=== PATIENT | female | born 1960 | race Caucasian/White ===

== ENCOUNTER 2016-07-07 13:25 | Emergency (ER) | payer BC, MEDICAID ==
[2016-07-07 14:00] VITALS: BP 141/77
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
== END 2016-07-07 15:10 | disposition home or self-care (01) ==
LOC: JP.ED 13:25
DX: R10.9 Unspecified abdominal pain (principal); G89.18 Other acute postprocedural pain; I10 Essential (primary) hypertension; I50.9 Heart failure, unspecified; K21.9 Gastro-esophageal reflux disease without esophagitis; F41.0 Panic disorder [episodic paroxysmal anxiety]; F32.9 Major depressive disorder, single episode, unspecified; Z90.49 Acquired absence of other specified parts of digestive tract; Z98.84 Bariatric surgery status; Z90.710 Acquired absence of both cervix and uterus; Z90.721 Acquired absence of ovaries, unilateral; Z98.890 Other specified postprocedural states; Z79.899 Other long term (current) drug therapy; Z88.2 Allergy status to sulfonamides; Z88.1 Allergy status to other antibiotic agents; Z88.8 Allergy status to other drugs, medicaments and biological substances
CPT/HCPCS: 99284

== ENCOUNTER 2016-07-22 10:57 | Emergency (ER) | payer BC, MEDICAID ==
[2016-07-22 11:08] VITALS: BP 119/97
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
== END 2016-07-22 12:03 ==
LOC: JP.ED 10:57
DX: Z02.89 Encounter for other administrative examinations (principal); S31.113A Laceration without foreign body of abdominal wall, right lower quadrant without penetration into peritoneal cavity, initial encounter; H54.7 Unspecified visual loss; K21.9 Gastro-esophageal reflux disease without esophagitis; I11.0 Hypertensive heart disease with heart failure; I50.9 Heart failure, unspecified; Z88.5 Allergy status to narcotic agent; Z88.2 Allergy status to sulfonamides; Z88.8 Allergy status to other drugs, medicaments and biological substances; Z79.899 Other long term (current) drug therapy; X99.1XXA Assault by knife, initial encounter
CPT/HCPCS: 99285

== ENCOUNTER 2016-07-23 15:45 | Inpatient (IN) | payer BC, MEDICAID ==
[2016-07-23] MEDS ORDERED: Sodium Chloride 0.9% 1,000 ML IV SCH (16:00)
[2016-07-23] MEDS: Acetaminophen 325 MG Tab PO ONE ×2 (16:17→16:39)
[2016-07-23] MEDS ORDERED: HYDROmorphone 2 MG Tab PO PRN (16:55)
[2016-07-23] MEDS ORDERED: Albuterol/Ipratropium 3.0-0.5 MG/3 ML Neb Soln NEB PRN (16:55)
[2016-07-23] MEDS ORDERED: Albuterol 8 GM Inhaler INH PRN (16:55)
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
[2016-07-23] MEDS: Linezolid 600 MG in Premix Bag 1 BAG IV SCH (17:47)
[2016-07-23] MEDS: traZODone 50 MG Tab PO SCH (20:42)
[2016-07-23] MEDS: busPIRone 10 MG Tab PO SCH (20:42)
[2016-07-23] MEDS: Prazosin 1 MG Cap PO SCH (20:42)
[2016-07-23] MEDS: Cyclobenzaprine 10 MG Tab PO PRN (20:42)
[2016-07-23] MEDS: HYDROmorphone 2 MG Tab PO PRN (23:50)
[2016-07-24] MEDS: Linezolid 600 MG in Premix Bag 1 BAG IV SCH ×3 (04:56→18:38)
[2016-07-24] MEDS: Cyclobenzaprine 10 MG Tab PO PRN ×3 (04:56→21:53)
[2016-07-24] MEDS: HYDROmorphone 2 MG Tab PO PRN ×2 (08:10→18:43)
[2016-07-24] MEDS: Enoxaparin 40 MG/0.4 ML Syringe SUBCUT SCH (09:17)
[2016-07-24] MEDS: Escitalopram 20 MG Tab PO SCH (09:17)
[2016-07-24] MEDS: busPIRone 10 MG Tab PO SCH ×2 (09:17→20:37)
[2016-07-24] MEDS: Ondansetron 4 MG Tab.DIS PO PRN (09:19)
[2016-07-24] MEDS: traZODone 50 MG Tab PO SCH (20:37)
[2016-07-24] MEDS: Prazosin 1 MG Cap PO SCH (20:37)
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
[2016-07-25] MEDS: HYDROmorphone 2 MG Tab PO PRN ×3 (00:49→17:29)
[2016-07-25] MEDS: Linezolid 600 MG in Premix Bag 1 BAG IV SCH ×2 (05:38→17:17)
[2016-07-25] MEDS: Cyclobenzaprine 10 MG Tab PO PRN ×2 (06:09→17:18)
[2016-07-25] MEDS: Enoxaparin 40 MG/0.4 ML Syringe SUBCUT SCH (08:39)
[2016-07-25] MEDS: Escitalopram 20 MG Tab PO SCH (08:39)
[2016-07-25] MEDS: busPIRone 10 MG Tab PO SCH ×2 (08:39→20:20)
[2016-07-25] MEDS: Ondansetron 4 MG Tab.DIS PO PRN (10:03)
[2016-07-25] MEDS: Acyclovir 200 MG Cap PO PRN ×2 (12:35→17:17)
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
[2016-07-25] MEDS: traZODone 50 MG Tab PO SCH (20:21)
[2016-07-25] MEDS: Prazosin 1 MG Cap PO SCH (20:21)
[2016-07-26] MEDS: HYDROmorphone 2 MG Tab PO PRN ×4 (00:12→20:01)
[2016-07-26] MEDS: Cyclobenzaprine 10 MG Tab PO PRN ×2 (02:41→14:01)
[2016-07-26] MEDS: Acyclovir 200 MG Cap PO PRN ×3 (02:47→20:00)
[2016-07-26] MEDS: Linezolid 600 MG in Premix Bag 1 BAG IV SCH (05:19)
[2016-07-26] MEDS: Escitalopram 20 MG Tab PO SCH (08:39)
[2016-07-26] MEDS: Ondansetron 4 MG Tab.DIS PO PRN (08:39)
[2016-07-26] MEDS: busPIRone 10 MG Tab PO SCH ×2 (08:39→20:03)
[2016-07-26] MEDS: Enoxaparin 40 MG/0.4 ML Syringe SUBCUT SCH (08:40)
--- NOTE | 2016-07-26 09:32 | CR ---
Chest 1V Frontal INDICATION: fever. FINDINGS: Comparison 05/14/2015. Interval resolution of the opacity in the right upper lung since prio r exam. Chest otherwise negative.
[2016-07-26] MEDS: Lactobacillus Rhamnosus GG (Probiotic) Cap PO SCH ×2 (10:20→20:03)
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
[2016-07-26] MEDS ORDERED: Loperamide 2 MG Cap PO PRN (17:31)
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
[2016-07-26] MEDS: traZODone 50 MG Tab PO SCH (20:02)
[2016-07-26] MEDS: Prazosin 1 MG Cap PO SCH (20:03)
[2016-07-27] MEDS: HYDROmorphone 2 MG Tab PO PRN (08:08)
[2016-07-27] MEDS: busPIRone 10 MG Tab PO SCH (08:16)
[2016-07-27] MEDS: Escitalopram 20 MG Tab PO SCH (08:17)
[2016-07-27] MEDS: Lactobacillus Rhamnosus GG (Probiotic) Cap PO SCH (08:17)
[2016-07-27] MEDS: Acyclovir 200 MG Cap PO PRN (08:19)
[2016-07-27] MEDS: Enoxaparin 40 MG/0.4 ML Syringe SUBCUT SCH (08:23)
[2016-07-27 08:37] VITALS: BP 130/95
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
== END 2016-07-27 10:00 | disposition home or self-care (01) | DRG 384 ==
LOC: JP.ED 15:45 → JP.ICU 16:48 → JP.MS 07-24 15:50
PROVIDERS: ADMIT Internal Medicine; ATTEND Internal Medicine
DX: S31.103A Unspecified open wound of abdominal wall, right lower quadrant without penetration into peritoneal cavity, initial encounter (principal); B95.61 Methicillin susceptible Staphylococcus aureus infection as the cause of diseases classified elsewhere; B95.0 Streptococcus, group A, as the cause of diseases classified elsewhere; Y08.89XA Assault by other specified means, initial encounter; S40.022A Contusion of left upper arm, initial encounter; S40.021A Contusion of right upper arm, initial encounter; S00.83XA Contusion of other part of head, initial encounter; I10 Essential (primary) hypertension; F41.9 Anxiety disorder, unspecified; F32.9 Major depressive disorder, single episode, unspecified; E53.8 Deficiency of other specified B group vitamins; Z85.6 Personal history of leukemia; F11.20 Opioid dependence, uncomplicated; M54.9 Dorsalgia, unspecified; G89.29 Other chronic pain; Z99.81 Dependence on supplemental oxygen; Z87.01 Personal history of pneumonia (recurrent); H54.7 Unspecified visual loss; Z86.14 Personal history of Methicillin resistant Staphylococcus aureus infection; K86.1 Other chronic pancreatitis; F43.10 Post-traumatic stress disorder, unspecified; Z98.84 Bariatric surgery status; Z98.0 Intestinal bypass and anastomosis status; Z88.6 Allergy status to analgesic agent; Z88.1 Allergy status to other antibiotic agents; Z88.5 Allergy status to narcotic agent; Z88.0 Allergy status to penicillin; Z88.2 Allergy status to sulfonamides; Z88.7 Allergy status to serum and vaccine
CPT/HCPCS: 36415; 71010; 71010-26; 80048; 80053; 81001; 83605; 85025; 86140; 87040; 87070; 87077; 87186; 87205; 96360; 96361; 99285-25; A9270-GY; J1650; J2020; J7040; J7050; J7620; S0077

== ENCOUNTER 2016-10-24 03:50 | Emergency (ER) | payer BC, MEDICAID ==
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
[2016-10-24] MEDS ORDERED: Cephalexin 250 MG Cap PO ONE (06:08)
[2016-10-24 06:12] VITALS: BP 118/76
== END 2016-10-24 06:22 | disposition home or self-care (01) ==
LOC: JP.ED 03:50
DX: R50.9 Fever, unspecified (principal); I11.0 Hypertensive heart disease with heart failure; I50.9 Heart failure, unspecified; H54.7 Unspecified visual loss; Z88.7 Allergy status to serum and vaccine; Z88.1 Allergy status to other antibiotic agents; Z88.2 Allergy status to sulfonamides; Z88.0 Allergy status to penicillin; Z88.6 Allergy status to analgesic agent; Z88.5 Allergy status to narcotic agent; Z88.8 Allergy status to other drugs, medicaments and biological substances; Z79.899 Other long term (current) drug therapy; Z87.01 Personal history of pneumonia (recurrent)
CPT/HCPCS: 36415; 80048; 81001; 85027; 86140; 99284; A9270

== ENCOUNTER 2017-01-16 20:08 | Emergency (ER) | payer BC, MEDICAID ==
[2017-01-16] MEDS ORDERED: Sodium Chloride 0.9% 1,000 ML IV SCH (20:15)
[2017-01-16] MEDS ORDERED: LORazepam 2 MG/ML MDV IVPUSH ONE (20:15)
[2017-01-16] MEDS ORDERED: methylPREDNISolone Sodium Succinate 125 MG/2 ML SDV IVPUSH ONE (20:15)
[2017-01-16] MEDS ORDERED: Sodium Chloride 0.9% 10 ML Syringe FLUSH PRN (20:16)
[2017-01-16] MEDS ORDERED: Famotidine 20 MG/2 ML SDV IVPUSH ONE (20:21)
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
[2017-01-16 21:11] VITALS: BP 123/34
== END 2017-01-16 21:24 | disposition home or self-care (01) ==
LOC: JP.ED 20:08
DX: T63.441A Toxic effect of venom of bees, accidental (unintentional), initial encounter (principal); I11.0 Hypertensive heart disease with heart failure; I50.9 Heart failure, unspecified; K21.9 Gastro-esophageal reflux disease without esophagitis; F41.9 Anxiety disorder, unspecified; F32.9 Major depressive disorder, single episode, unspecified; Z90.710 Acquired absence of both cervix and uterus; Z90.721 Acquired absence of ovaries, unilateral; Z90.49 Acquired absence of other specified parts of digestive tract; Z98.890 Other specified postprocedural states; Z98.84 Bariatric surgery status; Z79.899 Other long term (current) drug therapy; Z88.6 Allergy status to analgesic agent; Z88.2 Allergy status to sulfonamides; Z88.0 Allergy status to penicillin; Z88.7 Allergy status to serum and vaccine; Z88.8 Allergy status to other drugs, medicaments and biological substances
CPT/HCPCS: 96361; 96374; 96375; 99283; J2060; J2930; J7040; J7050; S0028

== ENCOUNTER 2017-03-07 13:45 | Emergency (ER) | payer MEDICAID ==
[2017-03-07 13:51] VITALS: BP 155/101
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
--- NOTE | 2017-03-07 14:58 | CT ---
Head wo Cont HISTORY: confusion, head injury TECHNIQUE: Spiral noncontrast CT scan of the brain was obtained along with high-resolution bone windo w reconstructions. FINDINGS: No acute intracranial hemorrhage or infarct is identified. There is no mass lesion, mass effect, midl ine shift, or ventricular abnormality. No abnormal extra-axial fluid collections are seen. Visualized paranasal sinuses and mastoid air cells are clear. Bone windows show no evidence for skull fracture. IMPRESSION: No hemorrhagic infarct, or other acute intracranial abnormality is identified. Negative for skull fra cture. Report was called to in the emergency department at 1451 hours. Total DLP 636 mGycm
== END 2017-03-07 15:37 | disposition home or self-care (01) ==
LOC: JP.ED 13:45
DX: S06.0X0A Concussion without loss of consciousness, initial encounter (principal); S00.83XA Contusion of other part of head, initial encounter; S60.212A Contusion of left wrist, initial encounter; S60.211A Contusion of right wrist, initial encounter; S40.812A Abrasion of left upper arm, initial encounter; Z88.2 Allergy status to sulfonamides; Z88.0 Allergy status to penicillin; Z88.5 Allergy status to narcotic agent; Z88.1 Allergy status to other antibiotic agents; Z79.899 Other long term (current) drug therapy; X58.XXXA Exposure to other specified factors, initial encounter
CPT/HCPCS: 36415; 70450; 70450-26; 80048; 80305; 81001; 85025; 99284-25

== ENCOUNTER 2017-03-11 09:30 | Emergency (ER) | payer MEDICAID ==
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
[2017-03-11] MEDS ORDERED: LORazepam 1 MG Tab PO ONE (10:08)
== END 2017-03-11 13:12 | disposition home or self-care (01) ==
LOC: JP.ED 09:30
DX: F22 Delusional disorders (principal); F41.9 Anxiety disorder, unspecified; F33.1 Major depressive disorder, recurrent, moderate; I10 Essential (primary) hypertension; Z79.899 Other long term (current) drug therapy; Z88.2 Allergy status to sulfonamides; Z88.1 Allergy status to other antibiotic agents; Z88.5 Allergy status to narcotic agent; Z88.8 Allergy status to other drugs, medicaments and biological substances
CPT/HCPCS: 36415; 80048; 80305; 81001; 84443; 85027; 99284; A9270; G0480

== ENCOUNTER 2017-03-27 11:13 | Emergency (ER) | payer MEDICAID | END 2017-03-27 11:30 | disposition left against medical advice (07) | LOC: JP.ED 11:13 | DX: Z53.21 Procedure and treatment not carried out due to patient leaving prior to being seen by health care provider (principal) ==

== ENCOUNTER 2017-09-25 21:31 | Observation (INO) | payer MEDICAID ==
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
[2017-09-26] MEDS ORDERED: Sodium Chloride 0.9% 10 ML Syringe FLUSH PRN (01:10)
[2017-09-27] MEDS: traZODone 50 MG Tab PO PRN ×2 (01:55→20:49)
[2017-09-27] MEDS: QUEtiapine 25 MG Tab PO SCH ×3 (01:55→14:27)
[2017-09-27] MEDS: Lisinopril 10 MG Tab PO SCH ×2 (01:56→10:33)
[2017-09-27] MEDS ORDERED: Mirtazapine 15 MG Tab PO SCH ×2 (02:15→21:00)
--- NOTE | 2017-09-27 08:43 | PCM.PN ---
- General Info Date of Service: 09/27/17 Subjective Update: She continues not be to in reality thinking there is blood on all of her fingers and she said she has had stiches on her foot. - Review of Systems HEENT: Reports: No Symptoms Pulmonary: Reports: No Symptoms Cardiovascular: Reports: No Symptoms Gastrointestinal: Reports: No Symptoms Genitourinary: Reports: No Symptoms Musculoskeletal: Reports: No Symptoms Skin: Reports: No Symptoms Psychiatric: Reports: Other (Not in reality) - Patient Data Vitals - Most Recent: Last Vital Signs Temp 98.3 F 09/27/17 08:00 Pulse 77 09/27/17 08:00 Resp 14 09/27/17 08:00 BP 162/97 H 09/27/17 08:00 Pulse Ox 100 09/27/17 08:00 Weight - Most Recent: 153 lb 14.122 oz I&O - Last 24 Hours: Intake & Output 09/26/17 09/27/17 09/27/17 22:59 06:59 14:59 Intake Total 360 Balance 360 Med Orders - Current: Current Medications Lisinopril (Prinivil) 10 mg PO DAILY [facility] Last Admin: 09/27/17 01:56 Dose: 10 mg Mirtazapine (Remeron) 15 mg PO BEDTIME [facility] Last Admin: 09/27/17 02:11 Dose: 15 mg Quetiapine Fumarate (Seroquel) 25 mg PO TID [facility] Last Admin: 09/27/17 01:55 Dose: 25 mg Sodium Chloride (Saline Flush) 10 ml FLUSH ASDIRECTED PRN PRN Reason: Keep Vein Open Trazodone HCl (Trazodone) 200 mg PO BEDTIME PRN PRN Reason: Insomnia Last Admin: 09/27/17 01:55 Dose: 200 mg Discontinued Medications Mirtazapine (Remeron) 15 mg PO BEDTIME [facility] - Exam General: Cooperative, Mild Distress HEENT: Pupils Equal, Pupils Reactive, EOMI, Mucous Membr. Moist/[place] Neck: Supple Lungs: Clear to Auscultation, Normal Respiratory Effort Cardiovascular: Regular Rate, Regular Rhythm Back Exam: Normal Inspection, Full Range of Motion Extremities: Normal Inspection, Normal Range of Motion, Non-Tender, No Pedal Edema, Normal Capillary Refill Skin: Warm, Dry, Intact Psy/Mental Status: Hallucinations - Problem List Review Problem List Initiated/Reviewed/Updated: Yes - My Orders Last 24 Hours: My Active Orders 09/26/17 Breakfast Regular Diet [DIET] 09/27/17 01:26 traZODone 200 mg PO BEDTIME PRN 09/27/17 01:28 QUEtiapine [SEROquel] 25 mg PO TID 09/27/17 01:30 Lisinopril [Prinivil] 10 mg PO DAILY 09/27/17 02:15 Mirtazapine [Remeron] 15 mg PO BEDTIME 09/27/17 07:00 Head wo Cont [CT] Routine - Plan Plan:: Assessment/plan: #1. Psychosis- I do not think this is related to medication use or overdose of drugs and is not in delirium. Unable to transfer to a Psy unit today. I will increase Seroquel to 200mg at h.s. tonight and further increase if needed. I have spoken with a psychiatrist and will follow with increased meds as needed. #2. Chronic back pain: On a pain pump #3. History of depression #4. History of Pancreatitis #5. Hypertension: Will continue with meds as/home. #6. History of cirrhosis #7. Insomnia made worse by psychosis #8. History of PTSD All medicine was reviewed with the Pharmacy and she is not allergic to Metoprolol and she has been on this for many months.
[2017-09-27] MEDS ORDERED: hydrOXYzine HCl 25 MG Tab PO PRN (08:50)
[2017-09-27] MEDS ORDERED: Non-Formulary Medication 1 Each (Trazodone [Trazodone] 200 MG) PO PRN (08:50)
--- NOTE | 2017-09-27 08:50 | CT ---
Head wo Cont INDICATION: mental status COMPARISON: Comparison CT 09/25/2017. FINDINGS: No acute intracranial hemorrhage, mass, or edema. Ventricular size within normal limits. Vi sualized paranasal sinuses and mastoid air cells are clear. Exam otherwise negative. IMPRESSION: Negative Exam.
[2017-09-27] MEDS ORDERED: Lisinopril 10 MG Tab PO SCH (09:00)
[2017-09-27] MEDS ORDERED: ARIPiprazole 10 MG Tab PO SCH (09:00)
[2017-09-27] MEDS ORDERED: BUSPIRONE HCL 30 MG PO SCH (09:00)
[2017-09-27] MEDS ORDERED: Citalopram 20 MG Tab PO SCH (09:00)
[2017-09-27] MEDS: busPIRone 10 MG Tab PO SCH ×2 (10:32→20:48)
[2017-09-27] MEDS: Metoprolol Succinate 25 MG Tab.ER PO SCH (10:32)
[2017-09-27] MEDS: ARIPiprazole 10 MG Tab PO SCH (10:32)
[2017-09-27] MEDS: Escitalopram 20 MG Tab PO SCH (10:33)
[2017-09-27] MEDS: QUEtiapine 100 MG Tab PO ONE (20:48)
[2017-09-27] MEDS: Prazosin 1 MG Cap PO SCH (20:49)
[2017-09-28] MEDS ORDERED: Haloperidol Lactate 5 MG/ML SDV IVPUSH ONE ×2 (00:29→01:30)
[2017-09-28] MEDS ORDERED: QUEtiapine 25 MG Tab PO ONE (05:14)
[2017-09-28] MEDS: QUEtiapine 100 MG Tab PO ONE (05:16)
[2017-09-28] MEDS: busPIRone 10 MG Tab PO SCH ×2 (05:18→10:34)
[2017-09-28] MEDS: Prazosin 1 MG Cap PO SCH (05:19)
[2017-09-28] MEDS ORDERED: QUEtiapine 100 MG Tab PO ONE (05:41)
[2017-09-28] MEDS: ARIPiprazole 10 MG Tab PO SCH (10:32)
[2017-09-28] MEDS: Metoprolol Succinate 25 MG Tab.ER PO SCH (10:32)
[2017-09-28] MEDS: Escitalopram 20 MG Tab PO SCH (10:33)
[2017-09-28] MEDS: QUEtiapine 25 MG Tab PO SCH (10:34)
[2017-09-28] MEDS: Lisinopril 10 MG Tab PO SCH (10:35)
[2017-09-28 12:24] VITALS: BP 140/76
--- NOTE | 2017-09-28 12:51 | PCM.PN ---
- General Info Date of Service: 09/28/17 Subjective Update: She would not swallow Seroquel last evening so gave her 10mg of Haldol twice IM with a minimal affect. 6 hrs later at 5:30 this morning gave her 200 mg of Seroquel as she has not slept for several days. She is now lethergic she is giving a minimual response. - Review of Systems General: Reports: Weakness Pulmonary: Reports: No Symptoms Cardiovascular: Reports: No Symptoms Gastrointestinal: Reports: No Symptoms Skin: Reports: No Symptoms Neurological: Reports: Trouble Speaking, Weakness Psychiatric: Reports: Hallucinations - Patient Data Vitals - Most Recent: Last Vital Signs Temp 97.8 F 09/28/17 12:22 Pulse 75 09/28/17 12:22 Resp 16 09/28/17 12:22 BP 140/76 09/28/17 12:22 Pulse Ox 100 09/28/17 12:22 Weight - Most Recent: 153 lb 14.122 oz I&O - Last 24 Hours: Intake & Output 09/27/17 09/28/17 09/28/17 22:59 06:59 14:59 Intake Total 300 Balance 300 Med Orders - Current: Current Medications Aripiprazole (Abilify) 10 mg PO DAILY [facility] Last Admin: 09/28/17 10:32 Dose: Not Given Buspirone HCl (Buspar) 30 mg PO BID [facility] Last Admin: 09/28/17 10:34 Dose: Not Given Escitalopram Oxalate (Lexapro) 20 mg PO DAILY [facility] Last Admin: 09/28/17 10:33 Dose: Not Given Eszopiclone (Lunesta) 3 mg PO BEDTIME PRN PRN Reason: insomnia Hydroxyzine HCl (Atarax) 50 mg PO QID PRN PRN Reason: Itching Lisinopril (Prinivil) 10 mg PO DAILY [facility] Last Admin: 09/28/17 10:35 Dose: Not Given Metoprolol Succinate (Toprol Xl) 25 mg PO DAILY [facility] Last Admin: 09/28/17 10:32 Dose: Not Given Prazosin HCl (Minpress) 5 mg PO BEDTIME [facility] Last Admin: 09/28/17 05:19 Dose: Not Given Sodium Chloride (Saline Flush) 10 ml FLUSH ASDIRECTED PRN PRN Reason: Keep Vein Open Trazodone HCl (Trazodone) 200 mg PO BEDTIME PRN PRN Reason: Insomnia Last Admin: 09/27/17 01:55 Dose: 200 mg Discontinued Medications Aripiprazole (Abilify) 10 mg PO DAILY [facility] Last Admin: 09/27/17 10:49 Dose: Not Given Citalopram Hydrobromide (Celexa) 20 mg PO DAILY [facility] Haloperidol Lactate (Haldol) 10 mg IVPUSH ONETIME ONE Stop: 09/28/17 00:30 Last Admin: 09/28/17 00:42 Dose: 10 mg Haloperidol Lactate (Haldol) 10 mg IVPUSH ONETIME ONE Stop: 09/28/17 01:31 Last Admin: 09/28/17 01:42 Dose: 10 mg Lisinopril (Prinivil) 10 mg PO DAILY [facility] Last Admin: 09/27/17 10:49 Dose: Not Given Mirtazapine (Remeron) 15 mg PO BEDTIME [facility] Mirtazapine (Remeron) 15 mg PO BEDTIME [facility] Last Admin: 09/27/17 02:11 Dose: 15 mg Non-Formulary Medication (Buspirone Hcl [Buspirone]) 30 mg PO BID [facility] Last Admin: 09/27/17 10:49 Dose: Not Given Non-Formulary Medication (Trazodone [Trazodone]) 200 mg PO BEDTIME PRN PRN Reason: Pain, insomnia Quetiapine Fumarate (Seroquel) 25 mg PO TID [facility] Last Admin: 09/28/17 10:34 Dose: Not Given Quetiapine Fumarate (Seroquel) 200 mg PO BEDTIME ONE Stop: 09/27/17 20:01 Last Admin: 09/28/17 05:16 Dose: Not Given Quetiapine Fumarate (Seroquel) 200 mg PO ONETIME ONE Stop: 09/28/17 05:15 Last Admin: 09/28/17 06:12 Dose: Not Given Quetiapine Fumarate (Seroquel) 200 mg PO DAILY ONE Stop: 09/28/17 05:42 Last Admin: 09/28/17 05:59 Dose: 200 mg - Exam General: Lethargic HEENT: Pupils Equal Neck: Supple Lungs: Clear to Auscultation, Normal Respiratory Effort Cardiovascular: Regular Rate GI/Abdominal Exam: Normal Bowel Sounds, Soft - Problem List Review Problem List Initiated/Reviewed/Updated: Yes - My Orders Last 24 Hours: My Active Orders 09/27/17 21:00 Prazosin [Minpress] 5 mg PO BEDTIME - Plan Plan:: Assessment/plan: #1. Psychosis- I gave her Haldol 10mg twice last night with minimual affect. This morning I gave her Seroquel 200 mg and that made her very weak and is resting. Have spoken with [facility] in [place] and they have excepted her for an admission. #2. Chronic back pain: On a pain pump #3. History of depression #4. History of Pancreatitis #5. Hypertension: Will continue with meds as/home. #6. History of cirrhosis #7. Insomnia made worse by psychosis #8. History of PTSD
--- NOTE | 2017-09-28 13:01 | PCM.DCSUM1 ---
Discharge Summary - Hospital Course Brief History: Admitted from home having another episode of psychosis as she has had before. She was confused at home and brought in by a [employer] worker. - Discharge Data Discharge Date: 09/28/17 Discharge Disposition: Home, Self-Care 01 Condition: Fair - Patient Summary/Data Hospital Course: All medicine was held for 24 hrs then the blood pressure meds were started. She had not slept for days. Haldol 20 mg give IM as she would not swallow pills. Then 6 hrs later she took Seroquel. I spoke with [facility] who excepted the patient. - Patient Instructions Diet: Heart Healthy Diet Activity: Bedrest - Discharge Plan Home Medications: Home Meds Escitalopram Oxalate 20 mg PO DAILY 11/12/15 [History] *Pain Pump 1 cartridge IMPLANT ASDIRECTED 07/07/16 [History] Eszopiclone 3 mg PO BEDTIME PRN 09/26/17 [History] Metoprolol Succinate [Toprol XL] 25 mg PO DAILY 09/26/17 [History] Pantoprazole Sodium [Protonix] 40 mg PO DAILY 09/26/17 [History] Prazosin HCl [Prazosin] 5 mg PO BEDTIME 09/26/17 [History] ARIPiprazole [Abilify] 10 mg PO DAILY tablet 09/28/17 [Rx] Lisinopril [Prinivil] 10 mg PO DAILY tablet 09/28/17 [Rx] Sodium Chloride 0.9% [Saline Flush] 10 ml FLUSH ASDIRECTED PRN syringe [Rx] busPIRone [Buspar] 30 mg PO BID tablet 09/28/17 [Rx] Forms: ED Department Discharge Referrals: Juan Traango Sr, MD [Primary Care Provider] - - Patient Data Vitals - Most Recent: Last Vital Signs Temp 97.8 F 09/28/17 12:22 Pulse 75 09/28/17 12:22 Resp 16 09/28/17 12:22 BP 140/76 09/28/17 12:22 Pulse Ox 100 09/28/17 12:22 Weight - Most Recent: 153 lb 14.122 oz I&O - Last 24 hours: Intake & Output 09/27/17 09/28/17 09/28/17 22:59 06:59 14:59 Intake Total 300 Balance 300 Med Orders - Current: Current Medications Aripiprazole (Abilify) 10 mg PO DAILY [facility] Last Admin: 09/28/17 10:32 Dose: Not Given Buspirone HCl (Buspar) 30 mg PO BID [facility] Last Admin: 09/28/17 10:34 Dose: Not Given Escitalopram Oxalate (Lexapro) 20 mg PO DAILY [facility] Last Admin: 09/28/17 10:33 Dose: Not Given Eszopiclone (Lunesta) 3 mg PO BEDTIME PRN PRN Reason: insomnia Hydroxyzine HCl (Atarax) 50 mg PO QID PRN PRN Reason: Itching Lisinopril (Prinivil) 10 mg PO DAILY [facility] Last Admin: 09/28/17 10:35 Dose: Not Given Metoprolol Succinate (Toprol Xl) 25 mg PO DAILY [facility] Last Admin: 09/28/17 10:32 Dose: Not Given Prazosin HCl (Minpress) 5 mg PO BEDTIME [facility] Last Admin: 09/28/17 05:19 Dose: Not Given Sodium Chloride (Saline Flush) 10 ml FLUSH ASDIRECTED PRN PRN Reason: Keep Vein Open Trazodone HCl (Trazodone) 200 mg PO BEDTIME PRN PRN Reason: Insomnia Last Admin: 09/27/17 01:55 Dose: 200 mg Discontinued Medications Aripiprazole (Abilify) 10 mg PO DAILY [facility] Last Admin: 09/27/17 10:49 Dose: Not Given Citalopram Hydrobromide (Celexa) 20 mg PO DAILY [facility] Haloperidol Lactate (Haldol) 10 mg IVPUSH ONETIME ONE Stop: 09/28/17 00:30 Last Admin: 09/28/17 00:42 Dose: 10 mg Haloperidol Lactate (Haldol) 10 mg IVPUSH ONETIME ONE Stop: 09/28/17 01:31 Last Admin: 09/28/17 01:42 Dose: 10 mg Lisinopril (Prinivil) 10 mg PO DAILY [facility] Last Admin: 09/27/17 10:49 Dose: Not Given Mirtazapine (Remeron) 15 mg PO BEDTIME [facility] Mirtazapine (Remeron) 15 mg PO BEDTIME [facility] Last Admin: 09/27/17 02:11 Dose: 15 mg Non-Formulary Medication (Buspirone Hcl [Buspirone]) 30 mg PO BID [facility] Last Admin: 09/27/17 10:49 Dose: Not Given Non-Formulary Medication (Trazodone [Trazodone]) 200 mg PO BEDTIME PRN PRN Reason: Pain, insomnia Quetiapine Fumarate (Seroquel) 25 mg PO TID [facility] Last Admin: 09/28/17 10:34 Dose: Not Given Quetiapine Fumarate (Seroquel) 200 mg PO BEDTIME ONE Stop: 09/27/17 20:01 Last Admin: 09/28/17 05:16 Dose: Not Given Quetiapine Fumarate (Seroquel) 200 mg PO ONETIME ONE Stop: 09/28/17 05:15 Last Admin: 09/28/17 06:12 Dose: Not Given Quetiapine Fumarate (Seroquel) 200 mg PO DAILY ONE Stop: 09/28/17 05:42 Last Admin: 09/28/17 05:59 Dose: 200 mg
== END 2017-09-28 12:50 | disposition home or self-care (01) ==
LOC: JP.ED 21:31 → JP.ICU 09-26 01:11
PROVIDERS: ADMIT Internal Medicine; ATTEND Internal Medicine
DX: F29 Unspecified psychosis not due to a substance or known physiological condition (principal); G89.29 Other chronic pain; M54.9 Dorsalgia, unspecified; I10 Essential (primary) hypertension; K21.9 Gastro-esophageal reflux disease without esophagitis; K74.60 Unspecified cirrhosis of liver; F41.9 Anxiety disorder, unspecified; F32.9 Major depressive disorder, single episode, unspecified; E55.9 Vitamin D deficiency, unspecified; D50.9 Iron deficiency anemia, unspecified; G47.00 Insomnia, unspecified; Z79.899 Other long term (current) drug therapy; Z88.7 Allergy status to serum and vaccine; Z88.1 Allergy status to other antibiotic agents; Z88.8 Allergy status to other drugs, medicaments and biological substances; Z88.2 Allergy status to sulfonamides; Z88.0 Allergy status to penicillin; Z88.6 Allergy status to analgesic agent; Z88.5 Allergy status to narcotic agent; Z99.81 Dependence on supplemental oxygen; Z90.89 Acquired absence of other organs
CPT/HCPCS: 36415; 70450; 80053; 80305; 81001; 85025; 96374; 96376; 99285; A9270; G0378; G0480; J1630